=== PATIENT | male | born 1965 | race Two or more races ===

== ENCOUNTER 2024-03-17 12:10 | Emergency (ER) | payer MEDICAID, OTHER ==
[~2024-03-17] VITALS: Ht 170.2 cm; Wt 95.5 kg
[2024-03-17] MEDS ORDERED: HYDR2.5C39 TOP (14:35)
[2024-03-17 14:51] VITALS: BP 124/76; PULSE 75; RESP 18; TEMP 97.6; O2SAT 96
== END 2024-03-17 15:03 | disposition home or self-care (01) ==
LOC: ER 12:10
DX: K64.4 Residual hemorrhoidal skin tags (principal)

== ENCOUNTER 2025-07-21 22:24 | Emergency (ER) | payer MEDICAID ==
[~2025-07-21] VITALS: Ht 165.1 cm; Wt 92.8 kg
[~2025-07-21 22:24] MED LIST: HYDR2.5C39 TOP
[2025-07-21 23:38] LABS: Hematocrit 32.6 % (41.0-53.0); Hemoglobin 11.6 g/dL (13.5-17.5); Mean Corpuscular Hemoglobin 31.6 pg (28.0-32.0); Mean Corpuscular Volume 88.4 fL (80.0-100.0); Nucleated Red Blood Cells % 0.1 %
[2025-07-22 00:03] LABS: Alanine Aminotransferase 30 U/L (7-40); Albumin 4.6 g/dL (3.2-4.8); Alkaline Phosphatase 58 U/L (46-116); Anion Gap 10 (5-15); BUN/Creatinine Ratio 21.7 (10.0-20.0); Calcium 8.9 mg/dL (8.7-10.4); Carbon Dioxide 20 mmol/L (20-31); Glucose 97 mg/dL (74-106); Magnesium 2.0 mg/dL (1.6-2.6); Sodium 141 mmol/L (136-145); Total Protein 7.6 g/dL (5.7-8.2)
[2025-07-22 00:04] LABS: Bilirubin, Total 0.4 mg/dL (0.2-1.0)
[2025-07-22 00:05] LABS: Urine Protein, UAD Negative (Negative)
[2025-07-22 00:09] LABS: Blood Urea Nitrogen 41 mg/dL (9-23); Chloride 111 mmol/L (98-107); Potassium 5.2 mmol/L (3.5-5.1)
--- NOTE | 2025-07-22 00:12 | ED.PDOC ---
History of Present Illness HPI Comments HPI: This is a 60 year-old male who presents to the ED with a chief complaint of R lower back pain for X2 weeks. Patient denies any trauma or injury to the back. Per spouse, patient was told by PCP to come to the ED for abnormal glucose levels. Patient has no further complaints or modifiers at this time. Patient denies chest pain, SOB, fever, chills, or N/V/D. Past Medical History: Pre-DM, HTN, High Lipids Past Surgical History: Hemorrhoid Social History: Denies ETOH, smoking, and drug use. Medications: Lisinopril Allergies: None Isadora: HPI: Poor Historian. Sent by his PCP's office for evaluation of abnormal labs kidney function and flank pain. REVIEW OF SYSTEMS: CONSTITUTIONAL: Denies acute: fever, diaphoresis, chills, generalized weakness. HEAD: Denies acute: headache, photophobia Eyes: Denies acute: Double vision, vision loss, eye pain, eye discharge. EARS: Denies acute: tinnitus, hearing loss, ear discharge, ear pain, THROAT: Denies acute: sore throat, swelling, difficulty swallowing , pain with swallowing, change in voice. NECK: Denies acute: neck pain, neck swelling, stiff neck. HEART: Denies acute : chest pain, palpitations, LUNGS: Denies acute: SOB, wheezing, cough, hemoptysis ABDOMEN: Denies acute: abdominal pain, Nausea, Vomiting, diarrhea, melena , hematemesis, hematochezia SKIN: Denies acute: rash, redness, lesions, itchiness. EXTREMITIES: Denies acute: calf pain, numbness, tingling, weakness, denies pain in extremity. Denies acute: Low back pain. Neuro: Denies acute: focal neurological deficit, motor or sensory focal neurological deficit, tremors, seizure like activity, confusion, dizziness, change in mental status, loss of bowel or bladder function, cauda equina like symptoms. : Denies acute: dysuria, hematuria, increase in urinary frequency. PSYCH: Denies acute: hallucination, suicidal ideation, homicidal ideation. PHYSICAL EXAM: General: -----no---acute distress, awake and alert. Head: normocephalic, atraumatic. Neck: supple, trachea is midline, no swelling. Throat: Normal phonation. Eyes:, no erythema, no purulent discharge, no proptosis, no icterus. Heart: regular rate, regular rhythm, no significant murmur appreciated. Lungs: no apparent respiratory distress, Able to speak in full sentences. No wheezing, no rhonchi, no crackles. No stridors Clear to auscultation bilaterally. Abdomen: non tender to palpation, non distended, soft, no guarding, no rebound, + bowel sounds. Neuro: Awake, Alert, oriented to name, self, situation, follows commands GCS=15. Speech is normal. Skin: no petechia, no purpura, no cyanosis, non-pale, not jaundice. Lower extremities: --no - Pitting edema no deformity, no focal swelling, no calf TTP. Makes eye contact. moves all four extremities. Face: no apparent facial droop. No CVA tenderness to percussion bilaterally. Ambulating in the ED independently. ED COURSE: DISCLAIMER: This medical document was created using an electronic medical record system with voice recognition software and computerized dictation system. Although this document has been carefully reviewed, there might still be some phonetic and typographical errors. Occasional wrong-word or "sound-alike" substitutions may have occurred due to the inherent limitations of voice recognition software. These areas are purely typographical due to imperfections of the software programs and do not reflect any compromise in the patient's medical care. Please read the chart carefully and recognize, using context, where these substitutions have occurred. Chief Complaint: Abnormal LAB's Time Seen by MD: 23:10 Primary Care Provider: UNKNOWN Reviewed Notes: Nurses Notes, Medications, Allergies Allergies: Coded Allergies: NO KNOWN ALLERGIES (Unverified , 03/17/24) Home Meds Active Scripts Hydrocortisone Base (Anusol-Hc) 2.5 % Cre, 1 APPLIC TOP BID for 5 Days, #30 GRAMS 0 Refills Prov:HERIBERTO STEWARTMary Fernandez NP 03/17/24 Information Source: Patient, Spouse Mode of Arrival: Ambulatory Severity: Moderate Duration: Since onset Prehospital treatment: None Physical Exam General Appearance: Other (per hpi) HEENT: Other (per hpi) Neck: Other (per hpi) Respiratory: Other (per hpi) Cardiovascular: Other (per hpi) Breast Exam: Other (per hpi) Gastrointestinal: Other (per hpi) Genitalia: Other (per hpi) Pelvic: Other (per hpi) Rectal: Other (per hpi) Extremities: Other (per hpi) Neurologic: Other (per hpi) Cerebellar Function: Other (per hpi) Reflexes: Other (per hpi) Skin: Other (per hpi) Lymphatic: Other (per hpi) Was a procedure done? Was a procedure done?: No Differential Dx Considerations may include: Flank Pain; DDX include Nephrolethiasis, obstructive uropathy, kidney cancer, renal infarct, intraabdominal neoplasm, lower lobe pneumonia, retroperitoneal hemorrhage, pancreatitis, aneurysm, dissection, musculoskeletal, rib contusion/trauma, hematoma, PYLONEPHRITIS, muscle strain, spinal disease. X-Ray, Labs, Meds, VS Vital Signs Date Time Temp Pulse Resp B/P (MAP) Pulse Ox O2 Delivery O2 Flow Rate FiO2 07/21/25 22:25 99.0 76 18 125/73 97 99.0 Lab Test 07/22/25 00:02 07/21/25 23:15 07/21/25 21:56 Range/Units Troponin I High Sensitivity < 3 L < 3 L </=54 ng/L White Blood Count 8.4 4.4-10.8 10^3/uL Red Blood Count 3.69 L 4.5-5.90 10^6/uL Hemoglobin 11.6 L 13.5-17.5 g/dL Hematocrit 32.6 L 41.0-53.0 % Mean Corpuscular Volume 88.4 80.0-100.0 fL Mean Corpuscular Hemoglobin 31.6 28.0-32.0 pg Mean Corpuscular Hemoglobin Concent 35.7 32.0-36.0 g/dL Red Cell Distribution Width 13.0 11.8-14.3 % Platelet Count 217 140-450 10^3/uL Mean Platelet Volume 8.5 6.9-10.8 fL Neutrophils (%) (Auto) 55.0 37.0-80.0 % Lymphocytes (%) (Auto) 29.4 10.0-50.0 % Monocytes (%) (Auto) 11.8 0.0-12.0 % Eosinophils (%) (Auto) 3.0 0.0-7.0 % Basophils (%) (Auto) 0.8 0.0-2.0 % Neutrophils # (Auto) 4.6 1.6-8.6 10 ^3/uL Lymphocytes # (Auto) 2.5 0.4-5.4 10 ^3/uL Monocytes # (Auto) 1.0 0-1.3 10 ^3/uL Eosinophils # (Auto) 0.3 0-0.8 10 ^3/uL Basophils # (Auto) 0.1 0-0.2 10 ^3/uL Nucleated Red Blood Cells 0.1 % Sodium Level 141 136-145 mmol/L Potassium Level 5.2 H 3.5-5.1 mmol/L Chloride Level 111 H 98-107 mmol/L Carbon Dioxide Level 20 20-31 mmol/L Anion Gap 10 5-15 Blood Urea Nitrogen 41 H 9-23 mg/dL Creatinine 1.89 H 0.700-1.30 mg/dL Glomerular Filtration Rate Calc 41 >90 mL/min BUN/Creatinine Ratio 21.7 H 10.0-20.0 Serum Glucose 97 74-106 mg/dL Lactic Acid Level 0.7 0.4-2.0 mmol/L Calcium Level 8.9 8.7-10.4 mg/dL Magnesium Level 2.0 1.6-2.6 mg/dL Total Bilirubin 0.4 0.2-1.0 mg/dL Aspartate Amino Transferase (AST) 24 13-40 U/L Alanine Aminotransferase (ALT) 30 7-40 U/L Alkaline Phosphatase 58 46-116 U/L Total Protein 7.6 5.7-8.2 g/dL Albumin 4.6 3.2-4.8 g/dL Urine Color Light-yellow Yellow Urine Clarity Clear Clear Urine pH 5.0 5.0-9.0 Urine Specific [place] 1.020 1.001-1.035 Urine Protein Negative Negative Urine Ketones Negative Negative Urine Blood Negative Negative /uL Urine Nitrite Negative Negative Urine Bilirubin Negative Negative Urine Urobilinogen Normal Negative mg/dL Urine Leukocyte Esterase Negative Negative /uL Urine RBC 1 0 - 3 /hpf Urine Microscopic WBC < 1 0-3 /HPF Urine Squamous Epithelial Cells None seen <5 /hpf Urine Bacteria None seen None Seen /hpf Urine Glucose Normal Normal mg/dL [facility] [id number] [facility] [address] Ph: [phone] DIAGNOSTIC IMAGING Diagnostic Imaging Report : [id number] Signed PATIENT: ROMERO ARREOLAT: [id number] UNIT: [id number] : 1965 LOC: ER ROOM / BED: / AGE / SEX: 60 / M ADM STATUS: REG ER SERVICE [id number] ORDERING PHYSICIAN: IVETTE CHARLES DO PROCEDURE(s): ABPL - CT AB PEL WO CON-NO ORAL OR IV REASON: flank pain ORDER NUMBER(s): [id number], ACCESSION NUMBER(s): [id number] Exam: CT CT AB PEL WO CON-NO ORAL OR IV History: flank pain Comparison Study: None Technique: Multidetector spiral CT of the abdomen was performed from lung bases to pubic symphysis. Imaging was performed without IV contrast. Axial, coronal and sagittal multiplanar reformats were obtained from the axial data set by the technologist. Radiation Dose : 1. Abdomen/Pelvis: CTDIvol 12.12 mGy, DLP 749.73 mGy*cm. Findings: Evaluation of solid organs is limited due to lack of intravenous contrast use. Lung Bases: No acute or significant lung base finding. Normal heart size. No pleural or pericardial effusion. Liver: The liver is enlarged, measuring 19.7 cm in craniocaudal dimension. No focal lesions. Gallbladder and Biliary Tree: Unremarkable Spleen: Unremarkable Pancreas: The pancreas is grossly normal in appearance. Adrenal Glands: Unremarkable Kidneys: Punctate nonobstructing bilateral pelvocaliceal calculi. No evidence of hydronephrosis. 1.0 cm right interpolar renal cortical cyst. Bladder: Grossly unremarkable for degree of distention. Bowel: The stomach is grossly normal in appearance. Small bowel and colon are normal in caliber and distribution. The appendix is normal. Ascites: Absent Lymphadenopathy: Shotty mesenteric and retroperitoneal lymphadenopathy. Abdominal Wall and Mesentery: Mild nonspecific central mesenteric edema. Vasculature: The visualized abdominal aorta is normal in size and caliber. Atherosclerotic vascular calcifications. Evaluation of abdominal and pelvic ve ssels is limited due to lack of intravenous contrast. Pelvic Organs: Unremarkable. Fat containing left inguinal hernia. Musculoskeletal: No aggressive focal bony lesions, acute fractures or dislocation. IMPRESSION: 1. Nonobstructive bilateral nephrolithiasis. 2. Nonspecific mild central mesenteric edema and shotty mesenteric and retroperitoneal lymphadenopathy. 3. Hepatomegaly. Radiation optimization: All CT scans at this facility use at least one of these dose optimization techniques: automated exposure control mA and/or kV adjustment per patient size (includes targeted exams where dose is matched to clinical indication) or iterative reconstruction. ATED BY: LELAND TAVARES MD DICTATED DATE/TIME: 07/22/2534 SIGNED BY: LELAND TAVARES MD SIGNED DATE/TIME: 07/22/2534 CC: Images Reviewed?: Images reviewed and evaluated by me Time of 1ST Reevaluation: 00:42 Reevaluation 1ST: Unchanged Patient Education/Counseling: Diagnosis, Treatment Family Education/Counseling: Diagnosis, Treatment Medical Screening: No EMC Exist At This Time Comments MDM: patient presented with the above HPI.--possible abnormal labs and flank pain----workup was initiated. patient was found with the above mentioned diagnosis. the following medications were ordered: please refer to order lists of meds and tests obtained by myself Dr. Charles. Patient ED course and VS have been stabilized. Patient has been reassessed in the ED and remained in a stable condition. Pertinent incidental findings were discussed with the patient and/or family. Patient/family voices understanding and is agreeable with plan. Patient has been observed in the ED adequate length of time to insure improvement/stability. Escalation of care considered: Consideration of escalation to observation or admission Patient was DISCHARGED home in a stable condition. All the reports of any imaging studies that were ordered by myself were reviewed by myself. SEPSIS Sepsis Screen Date sepsis recognized/suspect: Jul 21, 2025 Time Sepsis recognized/suspect: 2224 Recent Procedure: No On Antibiotic Therapy: No Respiratory Rate >20: No Heart Rate >90: No Temp<36 C (96.8 F) or >38.3 C: No SBP <90 or MAP <65 mmHG: No New Acute Mental Status Change: No Is the patient on CPAP, BIPAP,: No Physician Orders Ms Sql Server Developer (07/21/25 ) Electrocardigram (07/21/25 22:43) Ct Ab Pel Wo Con-No Oral Or Iv (07/21/25 22:43) Vital Signs Date Time Temp Pulse Resp B/P (MAP) Pulse Ox O2 Delivery O2 Flow Rate FiO2 9/9/25 22:25 99.0 76 18 125/73 97 99.0 Laboratory Tests Test 07/21/25 23:15 Lactic Acid Level 0.7 mmol/L (0.4-2.0) White Blood Count 8.4 10^3/uL (4.4-10.8) Departure 1 Departure Time of Disposition: 02:11 Impression: Primary Impression: Flank pain Disposition: HOME / SELF CARE / HOMELESS Condition: Stable Additional Instructions: Additional instructions: Please read all instructions provided in this packet carefully. You MUST follow-up with your primary care/family doctor in 1 to 2 days. If you are unable to see your primary care/family doctor, please return to our emergency room for re-assessment and re-evaluation in 1 to 2 days. Return to the emergency room here in our facility or to the nearest ER [facility] if y our symptoms change or worsen. CONSULTATIONS: you MUST Follow-up for consultation as soon as possible with: -urology and nephrology in 1-2 days. Please call for appointment. You MUST call the consultants office yourself to make an appointment. You may need to arrange that through your insurance and/or your primary/family doctor. If you are unable to see the senior staff consultant in 1 to 2 days, you must return to our emergency room (or any other ER of your choice) for re-assessment and re- evaluation. Adequate fluid hydration. Although you have been discharged from the Emergency Department, this does not mean that you have a "clean bill of health". No definitive diagnosis for your symptoms has been made today. It is possible that you are in the process of de veloping a serious illness. This is why you must return to the ED without fail if any new or worsening symptoms develop. Below is a copy of your radiological report for follow up: [facility] [id number] [place] [id number] Ph: [phone] DIAGNOSTIC IMAGING Diagnostic Imaging Report : [id number] Signed PATIENT: JESSICA ARREOLA ACCT: [id number] UNIT: [id number] : 1965 LOC: ER ROOM / BED: / AGE / SEX: 60 / M ADM STATUS: REG ER SERVICE [id number] ORDERING PHYSICIAN: IVETTE CHARLES DO PROCEDURE(s): ABPL - CT AB PEL WO CON-NO ORAL OR IV REASON: flank pain ORDER NUMBER(s): [id number], ACCESSION NUMBER(s): [id number] Exam: CT CT AB PEL WO CON-NO ORAL OR IV History: flank pain Comparison Study: None Technique: Multidetector spiral CT of the abdomen was performed from lung bases to pubic symphysis. Imaging was performed without IV contrast. Axial, coronal and sagittal multiplanar reformats were obtained from the axial data set by the technologist. Radiation Dose : 1. Abdomen/Pelvis: CTDIvol 12.12 mGy, DLP 749.73 mGy*cm. Findings: Evaluation of solid organs is limited due to lack of intravenous contrast use. Lung Bases: No acute or significant lung base finding. Normal heart size. No pleural or pericardial effusion. Liver: The liver is enlarged, measuring 19.7 cm in craniocaudal dimension. No focal lesions. Gallbladder and Biliary Tree: Unremarkable Spleen: Unremarkable Pancreas: The pancreas is grossly normal in appearance. Adrenal Glands: Unremarkable Kidneys: Punctate nonobstructing bilateral pelvocaliceal calculi. No evidence of hydronephrosis. 1.0 cm right interpolar renal cortical cyst. Bladder: Grossly unremarkable for degree of distention. Bowel: The stomach is grossly normal in appearance. Small bowel and colon are normal in caliber and distribution. The appendix is normal. Ascites: Absent Lymphadenopathy: Shotty mesenteric and retroperitoneal lymphadenopathy. Abdominal Wall and Mesentery: Mild nonspecific central mesenteric edema. Vasculature: The visualized abdominal aorta is normal in size and caliber. Atherosclerotic vascular calcifications. Evaluation of abdominal and pelvic vessels is limited due to lack of intravenous contrast. Pelvic Organs: Unremarkable. Fat containing left inguinal hernia. Musculoskeletal: No aggressive focal bony lesions, acute fractures or dislocation. IMPRESSION: 1. Nonobstructive bilateral nephrolithiasis. 2. Nonspecific mild central mesenteric edema and shotty mesenteric and ret roperitoneal lymphadenopathy. 3. Hepatomegaly. Radiation optimization: All CT scans at this facility use at least one of these dose optimization techniques: automated exposure control mA and/or kV adjustment per patient size (includes targeted exams where dose is matched to clinical indication) or iterative reconstruction. ATED BY: LELAND TAVARES MD DICTATED DATE/TIME: 07/22/25 0035 SIGNED BY: LELAND TAVARES MD SIGNED DATE/TIME: 07/22/2534 Discharged With: Self, Relative Critical Care Note Critical Care Time?: No Heart Score Heart Score: Heart Score Response (Comments) Value History N/A 0 EKG N/A 0 Age N/A 0 Risk Factors N/A 0 Troponin N/A 0 Total 0 I personally scribed for ARACELIIVETTE PEREZ DO ([email or web address]) on 07/22/25 at 00:12. Electronically submitted by Yvrose Mercado ([employer]). I personally scribed for ARACELIIVETTE PEREZ J DO ([email or web address]) on 07/22/25 at 01:11. Electronically submitted by Yvrose Mercado ([employer]). I personally scribed for ARACELIIVETTE PEREZ J DO ([email or web address]) on 07/22/25 at 01:19. Electronically submitted by Yvrose Mercado ([employer]). I personally scribed for ARACELIIVETTE PEREZ J DO ([email or web address]) on 07/22/25 at 01:19. Electronically submitted by Yvrose Mercado ([employer]). I personally scribed for ARACELIIVETTE PEREZ J DO ([email or web address]) on 07/22/25 at 01:20. Electronically submitted by Yvrose Mercado ([employer]). I personally scribed for ARACELIIVETTE PEREZ J DO ([email or web address]) on 07/22/25 at 03:39. Electronically submitted by Yvrose Mercado ([employer]). IVETTE CHARLES J DO Jul 22, 2025 00:12
--- NOTE | 2025-07-22 00:37 | DVH ---
Exam: CT CT AB PEL WO CON-NO ORAL OR IV History: flank pain Comparison Study: None Technique: Multidetector spiral CT of the abdomen was performed from lung bases to pubic symphysis. I maging was performed without IV contrast. Axial, coronal and sagittal multiplanar reformats were obta ined from the axial data set by the technologist. Radiation Dose : 1. Abdomen/Pelvis: CTDIvol 12.12 mGy, DLP 749.73 mGy*cm. Findings: Evaluation of solid organs is limited due to lack of intravenous contrast use. Lung Bases: No acute or significant lung base finding. Normal heart size. No pleural or pericardial effusion. Liver: The liver is enlarged, measuring 19.7 cm in craniocaudal dimension. No focal lesions. Gallbladder and Biliary Tree: Unremarkable Spleen: Unremarkable Pancreas: The pancreas is grossly normal in appearance. Adrenal Glands: Unremarkable Kidneys: Punctate nonobstructing bilateral pelvocaliceal calculi. No evidence of hydronephrosis. 1.0 cm right interpolar renal cortical cyst. Bladder: Grossly unremarkable for degree of distention. Bowel: The stomach is grossly normal in appearance. Small bowel and colon are normal in caliber and d istribution. The appendix is normal. Ascites: Absent Lymphadenopathy: Shotty mesenteric and retroperitoneal lymphadenopathy. Abdominal Wall and Mesentery: Mild nonspecific central mesenteric edema. Vasculature: The visualized abdominal aorta is normal in size and caliber. Atherosclerotic vascular c alcifications. Evaluation of abdominal and pelvic vessels is limited due to lack of intravenous contr ast. Pelvic Organs: Unremarkable. Fat containing left inguinal hernia. Musculoskeletal: No aggressive focal bony lesions, acute fractures or dislocation. IMPRESSION: 1. Nonobstructive bilateral nephrolithiasis. 2. Nonspecific mild central mesenteric edema and shotty mesenteric and retroperitoneal lymphadenopath y. 3. Hepatomegaly. Radiation optimization: All CT scans at this facility use at least one of these dose optimization evie hniques: automated exposure control mA and/or kV adjustment per patient size (includes targeted exam s where dose is matched to clinical indication) or iterative reconstruction.
[2025-07-22] MEDS: SODIUM CHLORIDE 0.9% 1,000 ML IV ONE (01:15)
[2025-07-22 03:30] VITALS: BP 122/72; PULSE 72; RESP 20; TEMP 98; O2SAT 97
== END 2025-07-22 03:39 | disposition home or self-care (01) ==
LOC: ER 22:24
DX: R10.9 Unspecified abdominal pain (principal); E11.9 Type 2 diabetes mellitus without complications; E78.5 Hyperlipidemia, unspecified; I10 Essential (primary) hypertension; Z87.19 Personal history of other diseases of the digestive system; Z79.899 Other long term (current) drug therapy
CPT/HCPCS: 36415; 74176; 80053; 81001; 83605; 83735; 84484; 85025